=== PATIENT | female | born 1980 | race Caucasian/White ===

== ENCOUNTER 2016-12-14 04:00 | Emergency (ER) | payer OTHER ==
[2016-12-14 04:10] VITALS: BP 126/81; PULSE 114; RESP 20; O2SAT 99
[2016-12-14] MEDS ORDERED: SODIUM CHLOR 0.9% 1000 ML INJ 1,000 ML IV SCH (04:13)
[2016-12-14] MEDS ORDERED: HYDROmorphone HCL PF 2 MG/ML VIAL IVS ONE (04:15)
[2016-12-14] MEDS ORDERED: ONDANSETRON HCL 4 MG/2 ML VIAL IVP ONE (04:15)
--- NOTE | 2016-12-14 04:18 | PD ---
HPI Chief Complaint: GI Complaint Time Seen by Provider: 04:07 Travel History International Travel<30 days: No Contact w/Intl Traveler<30days: No History of Present Illness HPI 36 yo F c/o abdominal pain along costal margin and nausea with innumerable episodes vomiting x 4 hours. Twenty episodes vomiting reported, non-bloody. Last PO intake was [employer] Filet and [employer] donut. Timing constant. No diarrhea. No fever. No complaint. PFSH Social History Tobacco Use: No Allergies-Medications (Allergen,Severity, Reaction): Coded Allergies: No Known Allergies (Unverified , 12/14/16) Reported Meds & Prescriptions Reported Meds & Active Scripts Active Zofran Odt (Ondansetron Odt) 4 Mg Tab 4 Mg SL Q8HR PRN Phenergan (Promethazine HCl) 25 Mg Tab 25 Mg PO Q6H PRN Reported Concerta (Methylphenidate HCl) 27 Mg Ines 27 Mg PO DAILY Zantac 75 (Ranitidine HCl) 75 Mg Tab 75 Mg PO DAILY Take 30 to 60 minutes before eating food or drinking beverages that cause heartburn. Bentyl (Dicyclomine HCl) 10 Mg Cap 10 Mg PO BID Prozac (Fluoxetine HCl) 10 Mg Cap 15 Mg PO DAILY Review of Systems Except as stated in HPI: all other systems reviewed are Neg Physical Exam Narrative GENERAL: 36 yo F, WNWD, moderate distress, vomited once SKIN: Warm and dry. HEAD: Atraumatic. Normocephalic. EYES: Pupils equal and round. No scleral icterus. No injection or drainage. ENT: No nasal bleeding or discharge. Mucous membranes pink and moist. NECK: Trachea midline. No JVD. CARDIOVASCULAR: Regular rate and rhythm. RESPIRATORY: Tachypnea. Lung clear. GASTROINTESTINAL: Soft. Negative Sahni's sign. No tenderness at McBurney's point. MUSCULOSKELETAL: Extremities without clubbing, cyanosis, or edema. No obvious deformities. NEUROLOGICAL: Awake and alert. No obvious cranial nerve deficits. Motor grossly within normal limits. Five out of 5 muscle strength in the arms and legs. Normal speech. PSYCHIATRIC: Appropriate mood and affect; insight and judgment normal. Data Data Last Documented VS Vital Signs Date Time Temp Pulse Resp B/P Pulse Ox O2 Delivery O2 Flow Rate FiO2 12/14/16 04:47 20 12/14/16 04:47 82 100/64 94 Orders Beta Hcg (Quant/Titer) (12/14/16 04:10) Complete Blood Count With Diff (12/14/16 04:10) Comprehensive Metabolic Panel (12/14/16 04:10) Lipase (12/14/16 04:10) Lactic Acid (12/14/16 04:10) Urinalysis - C+S If Indicated (12/14/16 04:10) Iv Access Insert/Monitor (12/14/16 04:10) Ecg Monitoring (12/14/16 04:10) Oximetry (12/14/16 04:10) Hydromorphone Pf Inj (Dilaudid Pf Inj) (12/14/16 04:15) Ondansetron Inj (Zofran Inj) (12/14/16 04:15) Sodium Chlor 0.9% 1000 Ml Inj (Ns 1000 M (12/14/16 04:13) Sodium Chlor 0.9% 1000 Ml Inj (Ns 1000 M (12/14/16 05:15) Labs Laboratory Tests Test 12/14/16 04:15 White Blood Count 22.9 TH/MM3 Red Blood Count 5.00 MIL/MM3 Hemoglobin 15.0 GM/DL Hematocrit 43.6 % Mean Corpuscular Volume 87.1 FL Mean Corpuscular Hemoglobin 30.1 PG Mean Corpuscular Hemoglobin 34.5 % Concent Red Cell Distribution Width 11.6 % Platelet Count 317 TH/MM3 Mean Platelet Volume 9.2 FL Neutrophils (%) (Auto) 84.1 % Lymphocytes (%) (Auto) 8.8 % Monocytes (%) (Auto) 5.7 % Eosinophils (%) (Auto) 0.6 % Basophils (%) (Auto) 0.8 % Neutrophils # (Auto) 19.3 TH/MM3 Lymphocytes # (Auto) 2.0 TH/MM3 Monocytes # (Auto) 1.3 TH/MM3 Eosinophils # (Auto) 0.1 TH/MM3 Basophils # (Auto) 0.2 TH/MM3 CBC Comment DIFF FINAL Differential Comment Sodium Level 134 MEQ/L Potassium Level 4.9 MEQ/L Chloride Level 102 MEQ/L Carbon Dioxide Level 23.7 MEQ/L Anion Gap 8 MEQ/L Blood Urea Nitrogen 12 MG/DL Creatinine 0.80 MG/DL Estimat Glomerular Filtration 81 ML/MIN Rate Random Glucose 108 MG/DL Lactic Acid Level 2.0 mmol/L Calcium Level 8.6 MG/DL Total Bilirubin 0.4 MG/DL Aspartate Amino Transf 71 U/L (AST/SGOT) Alanine Aminotransferase 21 U/L (ALT/SGPT) Alkaline Phosphatase 71 U/L Total Protein 8.1 GM/DL Albumin 3.2 GM/DL Lipase 147 U/L Human Chorionic Gonadotropin, LESS THAN 1 Quant MIU/ML MDM Medical Decision Making Medical Screen Exam Complete: Yes Emergency Medical Condition: Yes Differential Diagnosis Constipation, Gastritis, Acute Cholecystitis, Biliary Colic, Pancreatitis, AGUILAR , Hepatitis, Bowel Obstruction, Cystitis, Mesenteric Ischemia, AAA, Appendicitis , Renal Stone/Hydronephrosis, GERD, perforated viscous Narrative Course CBC & BMP Diagram 12/14/16 04:15 LFTs normal Lipase normal HCG < 1 LA 2.0 The patient is resting comfortably and feels better, is alert and in no distress. The patients results and examination findings were discussed. The repeat examination is unremarkable and benign. The history, exam, diagnostic testing, and current condition do not suggest any significant pathology to warrant further testing, continued ED treatment, admission, or surgical evaluation at this point. The vital signs have been stable. The patient does not have uncontrollable pain, intractable vomiting, or other significant symptoms. The patient's condition is stable and appropriate for discharge. The patient will pursue further outpatient evaluation with a primary care physician or other designated or consulting physician as indicated in the discharge instructions. The patient expressed understanding and was agreeable with this plan. Diagnosis Primary Impression: Nausea & vomiting Qualified Code: R11.2 - Nausea and vomiting, intractability of vomiting not specified, unspecified vomiting type Referrals: Primary Care Physician 2 days Additional Instructions: You have a choice when it comes to health care, and we are glad that you chose [facility]. Hopefully, we have met your expectations on today's visit. You are welcome to return to [facility] at any time, as we are committed to meeting the health care needs of our community. Med/Other Pt SpecificInfo: Prescription(s) given Scripts Ondansetron Odt (Zofran Odt)4 Mg Tab4 Mg SL Q8HR PRN (Nausea/Vomiting) #6 TAB Ref 0 Prov:Duarte Agudelo MD 12/14/16 Promethazine (Phenergan)25 Mg Tab25 Mg PO Q6H PRN (Nausea/Vomiting) #10 TAB Ref 0 Prov:Duarte Agudelo MD 12/14/16 Disposition: 01 DISCHARGE HOME Condition: Stable Duarte Agudelo MD December 14, 2016 04:18
[2016-12-14 04:22] LABS: AUTOMATED NEUTROPHIL # 19.3 TH/MM3 (1.8-7.7); BASOPHIL # 0.2 TH/MM3 (0-0.2); BASOPHIL % 0.8 % (0.0-2.0); EOSINOPHIL # 0.1 TH/MM3 (0-0.4); EOSINOPHIL % 0.6 % (0.0-4.0); HEMATOCRIT 43.6 % (35.0-46.0); LYMPH % 8.8 % (9.0-44.0); MEAN CELL VOLUME 87.1 FL (80.0-100.0); MEAN CORPUSCULAR HEMOGLOBIN 30.1 PG (27.0-34.0); MEAN CORPUSCULAR HGB CONC 34.5 % (32.0-36.0); MONO % 5.7 % (0.0-8.0); NEUT % 84.1 % (16.0-70.0); PLATELET COUNT 317 TH/MM3 (150-450); RED CELL DISTRIBUTION WIDTH 11.6 % (11.6-17.2); WHITE BLOOD COUNT 22.9 TH/MM3 (4.0-11.0)
[2016-12-14 04:23] LABS: HEMO FLAGS DIFF FINAL
[2016-12-14 04:27] VITALS: BP 100/64; PULSE 79; RESP 20; O2SAT 94
[2016-12-14 04:33] LABS: CHLORIDE 102 MEQ/L (98-107); POTASSIUM 4.9 MEQ/L (3.5-5.1); SODIUM (NA) 134 MEQ/L (136-145)
[2016-12-14 04:36] LABS: ANION GAP 8 MEQ/L (5-15); BICARBONATE 23.7 MEQ/L (21.0-32.0)
[2016-12-14 04:37] LABS: BLOOD UREA NITROGEN 12 MG/DL (7-18)
[2016-12-14 04:39] LABS: ALT (GPT) 21 U/L (10-53); AST (GOT) 71 U/L (15-37); GLOMERULAR FILTRATION RATE 81 ML/MIN (>89)
[2016-12-14 04:41] LABS: TOTAL BILIRUBIN ADULT 0.4 MG/DL (0.2-1.0)
[2016-12-14] MEDS ORDERED: METH27 PO (04:41)
[2016-12-14] MEDS ORDERED: DICY10 PO (04:41)
[2016-12-14] MEDS ORDERED: FLUO-1 PO (04:41)
[2016-12-14] MEDS ORDERED: ZANTTAB9 PO (04:41)
[2016-12-14 04:42] LABS: ALKALINE PHOSPHATASE 71 U/L (45-117)
[2016-12-14 04:44] LABS: BETA HCG QUANT LESS THAN 1 MIU/ML (0-5)
[2016-12-14 04:47] VITALS: BP 100/64; PULSE 82; RESP 20; O2SAT 94
[2016-12-14] MEDS ORDERED: PROM25TA5 PO (05:10)
[2016-12-14] MEDS ORDERED: SODIUM CHLOR 0.9% 1000 ML INJ 1,000 ML IV ONE (05:15)
[2016-12-14] MEDS ORDERED: ZOFR4TAB3 SL (05:21)
[2016-12-14 06:05] VITALS: BP 105/68
== END 2016-12-14 06:09 | disposition home or self-care (01) ==
LOC: PHED 04:00
DX: R11.2 Nausea with vomiting, unspecified (principal)
CPT/HCPCS: 80053; 83605; 83690; 84702; 85025; 87081; 87880; 96361; 96374; 96375; 99284; J1170; J2405; J7030